=== PATIENT | female | born 1990 | race Caucasian/White ===

== ENCOUNTER 2016-12-12 23:22 | Day surgery (SDC) | payer OTHER ==
[~2016-12-12] VITALS: Ht 170.2 cm; Wt 79.2 kg
[2016-12-13 00:09] LABS: ADD MIUA? YES; BILIRUBIN NEGATIVE; BLOOD MODERATE; COLOR YELLOW ((YELLOW)); GLUCOSE (STRIP) NEGATIVE; KETONES NEGATIVE; LEUKOCYTES NEGATIVE; NITRITE NEGATIVE; PROTEIN (STRIP) NEGATIVE; SPECIFIC GRAVITY 1.019 (1.000-1.030); UROBILINOGEN 0.2 MG/DL (0.2-1.0)
[2016-12-13 00:09] LABS: MCH 29.3 PG (29.0-34.0); MCHC 32.1 G/DL (30.0-36.0); MCV 91.3 FL (83-99); MEAN PLAT.VOLUME 11.3 uM^3 (9.5-12.4); PLATELET COUNT 216 K/uL (156-360); RBC DIS.WIDTH-CV 12.7 % (11.8-14.6); RBC DIS.WIDTH-SD 41.8 % (39-53); RED BLOOD COUNT 4.16 M/uL (3.80-5.20); WHITE BLOOD COUNT 11.9 K/uL (4.1-10.2)
[2016-12-13 01:03] LABS: BACTERIA 2+ /HPF; EPITHELIAL CELLS 2+ /HPF; MUCUS NONE SEEN /LPF; UCUL ADDED? NO; WHITE BLOOD CELLS 0-5 /HPF (0-5)
[2016-12-13 01:04] LABS: CASTS NONE SEEN /LPF
[2016-12-13 01:07] LABS: CRYSTALS PRESENT
[2016-12-13 01:08] LABS: AMORPHOUS URATES CRYSTALS 3+
[2016-12-13] MEDS ORDERED: ENDOCET 5-3251 EACH PO (06:17)
[2016-12-13] MEDS ORDERED: IBUPROFEN800 MG PO (06:17)
[2016-12-13 08:38] VITALS: BP 106/58
[2016-12-13 09:38] VITALS: BP 100/59
[2016-12-13 12:01] VITALS: BP 112/67
[2016-12-13 13:03] VITALS: BP 106/66
== END 2016-12-13 13:08 | disposition home or self-care (01) ==
LOC: EME 23:22 → SDC 12-13 04:40 → EME 12-13 04:40 → SDC 12-13 13:08
DX: O00.90 Unspecified ectopic pregnancy without intrauterine pregnancy (principal); O08.1 Delayed or excessive hemorrhage following ectopic and molar pregnancy; K66.1 Hemoperitoneum; Z86.19 Personal history of other infectious and parasitic diseases; F17.210 Nicotine dependence, cigarettes, uncomplicated
CPT/HCPCS: 76801; 81003; 84702; 85027; 86900; 86901; 88305; 99281; 99285; J0330; J2060; J2250; J2270; J2405; J2710; J3010; J7030; S0020

== ENCOUNTER 2017-01-01 12:26 | Emergency (ER) | payer OTHER ==
[~2017-01-01] VITALS: Ht 170.2 cm; Wt 75.3 kg
[~2017-01-01 12:26] MED LIST: ENDOCET 5-3251 EACH PO; IBUPROFEN800 MG PO
[2017-01-01 12:29] VITALS: BP 108/61
== END 2017-01-01 15:02 | disposition left against medical advice (07) ==
LOC: EME 12:26
DX: R10.9 Unspecified abdominal pain (principal); Z53.21 Procedure and treatment not carried out due to patient leaving prior to being seen by health care provider
CPT/HCPCS: 99281